=== PATIENT | female | born 1990 | race Caucasian/White ===

== ENCOUNTER → 2025-04-01 15:39 | Outpatient (BNVA) | payer OTHER, SELFPAY | PROVIDERS: Visit Provider Nurse Practitioner Women's Health | DX: N64.52 Nipple discharge (principal) | CPT/HCPCS: 87070; 87075; 87205 ==

== ENCOUNTER 2025-04-16 08:22 | Outpatient (CLI) | payer OTHER, SELFPAY ==
--- NOTE | 2025-04-16 08:30 | MM_ITS ---
WS: [id number] BILATERAL 3D TOMOSYNTHESIS DIGITAL DIAGNOSTIC MAMMOGRAPHY WITH CAD CLINICAL INFORMATION: N64.52 - Nipple discharge HISTORY: LEFT breast lump TECHNIQUE: Bilateral CC, MLO, and ML views. FINDINGS: The breasts are composed of heterogeneous fibroglandular density, which can limit the detection of small underlying mass lesions. Incidental punctate calcifications. LEFT breast ultrasound described below in the area of palpable concern ULTRASOUND BREAST LEFT. TECHNIQUE: Ultrasound left breast focused area of concern. CLINICAL INFORMATION: N64.52 - Nipple discharge FINDINGS: Ultrasound LEFT breast area of concern at the 11 o'clock position 2 cm from the nipple. Hypoechoic lobulated ovoid lesion measuring 8 x 7 x 5 mm. This has a solid appearance. This is technically indeterminate and recommend ultrasound- guided biopsy for definitive evaluation. MM/MM diag BI tomosynthesis [id number] IMPRESSION: DENSITY: The breasts are heterogeneously dense, which may obscure small masses. BI-RADS: 4 - Suspicious Finding - Biopsy Should Be Considered FOLLOW UP: US Guided Biopsy Recommended Recommend ultrasound-guided biopsy of the LEFT breast nodule
--- NOTE | 2025-04-16 09:00 | US_ITS ---
WS: [id number] BILATERAL 3D TOMOSYNTHESIS DIGITAL DIAGNOSTIC MAMMOGRAPHY WITH CAD CLINICAL INFORMATION: N64.52 - Nipple discharge HISTORY: LEFT breast lump TECHNIQUE: Bilateral CC, MLO, and ML views. FINDINGS: The breasts are composed of heterogeneous fibroglandular density, which can limit the detection of small underlying mass lesions. Incidental punctate calcifications. LEFT breast ultrasound described below in the area of palpable concern ULTRASOUND BREAST LEFT. TECHNIQUE: Ultrasound left breast focused area of concern. CLINICAL INFORMATION: N64.52 - Nipple discharge FINDINGS: Ultrasound LEFT breast area of concern at the 11 o'clock position 2 cm from the nipple. Hypoechoic lobulated ovoid lesion measuring 8 x 7 x 5 mm. This has a solid appearance. This is technically indeterminate and recommend ultrasound- guided biopsy for definitive evaluation. US/US breast LT limited* [id number] IMPRESSION: DENSITY: The breasts are heterogeneously dense, which may obscure small masses. BI-RADS: 4 - Suspicious Finding - Biopsy Should Be Considered FOLLOW UP: US Guided Biopsy Recommended Recommend ultrasound-guided biopsy of the LEFT breast nodule
== END 2025-04-16 08:23 | disposition home or self-care (01) ==
LOC: RAD 08:23
PROVIDERS: Visit Provider Nurse Practitioner Women's Health
DX: N64.52 Nipple discharge (principal); R92.333 Mammographic heterogeneous density, bilateral breasts; R92.1 Mammographic calcification found on diagnostic imaging of breast; N63.22 Unspecified lump in the left breast, upper inner quadrant
CPT/HCPCS: 76642; 77062; G0279

== ENCOUNTER 2025-04-29 12:52 | Outpatient (CLI) | payer OTHER, SELFPAY ==
--- NOTE | 2025-04-29 13:15 | US_ITS ---
WS: [id number] ULTRASOUND-GUIDED LEFT BREAST BIOPSY HISTORY: LEFT breast mass. COMPARISON: 04/16/2025 Procedure, risks and complications are explained to the patient. Medications are reviewed. Consent is obtained. The mass in the LEFT breast is localized with ultrasound. Mass localizes to 11:00, 2 cm from the nipple. Skin is cleansed with ChloraPrep and anesthetized with 1% buffered lidocaine. Small dermatome is made. Under sterile conditions mass is biopsied with a 14-gauge Achieve needle. Multiple core biopsies are performed. Material placed in formalin and sent to pathology for review. No complications encountered. Breast tissue marker (Atlas Local ultrasound enhanced ribbon): Single. Biopsy marker is deployed and is probably not within the mass but just beside the mass. Patient left the radiology suite with no complications. Patient is instructed to return to [facility] or call with any concerns. US/[place] [id number] IMPRESSION: 1. Limited core needle biopsy LEFT breast. Only a few biopsies were obtained a s the patient had a vasovagal reaction. PATHOLOGY: Fibroepithelial lesion. No microcalcifications. No malignancy. RECOMMENDATION: 6-month LEFT breast follow-up.
== END 2025-04-29 12:53 | disposition home or self-care (01) ==
LOC: RAD 12:54
PROVIDERS: Visit Provider Nurse Practitioner Women's Health
DX: R92.8 Other abnormal and inconclusive findings on diagnostic imaging of breast (principal); N64.89 Other specified disorders of breast; N60.82 Other benign mammary dysplasias of left breast
CPT/HCPCS: 19083; 88305

== ENCOUNTER → 2025-06-19 10:07 | Outpatient (BNVA) | payer OTHER, SELFPAY | PROVIDERS: Visit Provider Nurse Practitioner Women's Health | DX: R30.0 Dysuria (principal) | CPT/HCPCS: 81025 ==

== ENCOUNTER 2025-06-20 16:07 | Emergency (ER) | payer OTHER, SELFPAY ==
--- OUTSIDE RECORDS SUMMARY | 2025-06-16 16:00 | XMS_ITS | Encounter Summary ---
Author Organization [facility] Address [address] [place] [address] Care Team Providers Care Brass And Wind Instrument Repairer Name Role Phone George Parisi MD Primary Care Provider +1- [phone] Reason for Visit * Reason Comments Establish Care Constipation Encounter Details Date Type Department Care Team (Late st Contact Info) Description 06/16/2025 4:00 PM CDT Office Visit [address] [phone] George Parisi MD [address] [place] [phone] Chronic constipation (Primary Dx); Less than 8 weeks gestation of Social History Tobacco Use Types Packs/Day Years Used Date Smoking Tobacco: Never Smokeless Tobacco: Never Tobacco Cessation:Counseling Given: Not Answered Alcohol Use Standard Drinks/Week Comments Not Currently 0 (1 standard drink = 0.6 oz pur e alcohol) Comments Yes Sex and Gender Information Value Date Recorded Sex Assigned at Not on file Legal Sex Female 8:36 AM CDT Gender Identity Not on file Sexual Orientation Not on file documented as of this encounter Last Filed Vital Signs Vital Sign Reading Time Taken Comments Blood Pressure 116/64 06/16/2025 4:04 PM CDT Pulse 101 06/16/2025 4:04 PM CDT Temperature 37.2 C (99 F) 06/16/2025 4:04 PM CDT Respiratory Rate 18 06/16/2025 4:04 PM CDT Oxygen Saturation 97% 06/16/2025 4:04 PM CDT Inhaled Oxygen Concentration - - Weight 53.5 kg (118 lb) 06/16/2025 4:04 PM CDT Height 160 cm (5' 3 ) 06/16/2025 4:04 PM CDT Body Mass Index 20.9 06/16/2025 4:04 PM CDT documented in this encounter Patient Instructions * Attachments The following attachments cannot be sent through Care Everywhere. * Constipation (Kosovan) documented in this encounter Progress Notes * George Parisi MD - 06/16/2025 4:07 PM CDT HISTORY OF PRESENT ILLNESS Damaris Kang, a 34 y.o. female presents with a Chief Complaint of Establish Care and Constipation Subjective Here today to establish care Chronic constipation Taking bisocodyl 20 mg daily Unsure what her BM would look like without medication Anorexia at age 18, h/o laxative abuse Goes daily now with them, twice weekly without Currently about 6 weeks Due likely middle of January 1 & 3 year old [facility] appointment coming up Patient Active Problem List Diagnosis Code Chronic constipation K59.09 History of anorexia nervosa Z86.59 REVIEW OF SYSTEMS Review of Systems Constitutional: Negative for chills and fever. HENT: Negative for sore throat. Respiratory: Negative for cough and shortness of breath. All other systems reviewed and are negative. Objective PHYSICAL EXAM BP 116/64 Pulse (!) 101 Temp 99 ??F (37.2 ??C) (Temporal) Resp 18 Ht 5' 3 (1.6 m) Wt 53.5 kg (118 lb) LMP 05/04/2025 (Exact Date) SpO2 97% BMI 20.90 kg/m?? Physical Exam Vitals reviewed. Constitutional: General: She is not in acute distress. Appearance: Normal appearance. HENT: Head: Normocephalic and atraumatic. Nose: Nose normal. Eyes: Extraocular Movements: Extraocular movements intact. Conjunctiva/sclera: Conjunctivae normal. Cardiovascular: Rate and Rhythm: Normal rate and regular rhythm. Heart sounds: Normal heart sounds. Pulmonary: Effort: Pulmonary effort is normal. No respiratory distress. Breath sounds: Normal breath sounds. No wheezing or rales. Abdominal: General: Bowel sounds are normal. There is no distension. Palpations: Abdomen is soft. Tenderness: There is no abdominal tenderness. Skin: General: Skin is warm and dry. Neurological: General: No focal deficit present. Mental Status: She is alert and oriented to person, place, and time. Psychiatric: Mood and Affect: Mood normal. Behavior: Behavior normal. Behavior is cooperative. No results found for any visits on 06/16/25 (from the past 24 hours). Assessment ASSESSMENT and PLAN: ICD-10-CM ICD-9-CM 1. Chronic constipation K59.09 564.00 Discussed Handout provided She will also discuss best options with her OB Trial of adding to her nutrition and tapering off dulcolax as able 2. Less than 8 weeks gestation of Z3A.01 V22.2 HCG QUALITATIVE, BLOOD HCG QUALITATIVE, BLOOD George Parisi MD Outpatient Medications Marked as Taking for the 06/16/25 encounter (Office Visit) with Avril Parisi MD Medication Sig Dispense Refill escitalopram oxalate (LEXAPRO) 20 mg tablet Take 20 mg by mouth daily in the morning. Magnesium 200 mg Tablet Take 200 mg by mouth. ferrous sulfate 325 mg (65 mg iron) tablet Take 65 mg by mouth daily with breakfast. Depression Screen Positive: PHQ-2 score >= 3 or PHQ-9 score >= 9 PHQ-2 Total: 0 (06/16/2025 4:04 PM) DEPRESSION PLAN OF CARE Her depression screen was negative. (PHQ2 <3, PHQ9 <10, [place] <11) documented in this encounter Miscellaneous Notes * Addendum Note - George Parisi MD - 06/18/2025 11:02 AM CDTAddended by: GEORGE PARISI on: 06/18/2025 11:02 AM Modules accepted: Orders documented in this encounter Plan of Treatment Upcoming Encounters Date Type Department Care Team (Late st Contact Info) Description 06/17/2026 2:40 PM CDT Office Visit [facility] [address] [phone] George Parisi MD [address] [phone] documented as of this encounter Procedures Procedure Name Priority Date/Time Associated Diagnosis Comments HCG QUALITATIVE, SERUM Routine 06/16/2025 4:30 PM CDT Less than 8 weeks gestation of HCG QUANTITATIVE, BLOOD [facility] Add-on (Auto-Fax) 06/16/2025 12:00 AM CDT Less than 8 weeks gestation of documented in this encounter Results * (ABNORMAL) HCG QUALITATIVE, BLOOD (06/16/2025 4:30 PM CDT) Pathologist [facility] HCG QUAL, BLOOD POSITIVE(A ) See Note: [facility] Comment: Reference Range: Reference Range Non-: Negative : Positive Test Performed at: [facility] [address] [place] [address] Azalea Mendosa MD Blood 06/16/2025 4:30 PM CDT 06/17/2025 3:55 AM CDT us George Parisi MD CHEMISTRY ORDERABLES Final Result [facility] [phone] [facility] [address] [place] [phone] * HCG QUANTITATIVE, BLOOD (06/16/2025 12:00 AM CDT) Pathologist [facility] HCG QUANT, BLOOD 96972 mIU/mL [facility] Comment: Results verified by repeat analysis on dilution. Gestational Age Expected hCG values (mIU/mL) <1 Week: 5-50 1-2 Weeks: 50-500 2-3 Weeks: 100-5000 3-4 Weeks: 500-54562 4-5 Weeks: 1000-25846 5-6 Weeks: [address] 6-8 Weeks: [address] 2-3 Months: [id number] The table above provides only a very rough estimate of gestational age and should be used only in conjunction with other methods for establishing gestational age. Much more reliable and accurate estimations of gestational age may be obtained by using LMP or ultrasound. Values from different assay methods may vary. The use of this assay to monitor or to diagnose patients with cancer or any condition unrelated to has not been cleared or approved by the FDA or the skilled trades teacher of the assay. Test Performed at: [facility] [address] [place] [address] Azalea Mendosa MD Blood 06/16/2025 06/18/2025 2:0 8 PM CDT us George Parisi MD CHEMISTRY ORDERABLES Final Result [facility] [phone] [facility] [address] [place] [address] documented in this encounter Visit Diagnoses Diagnosis Chronic constipation- Primary Unspecified constipation Less than 8 weeks gestation of state, incidental documented in this encounter Care Teams Brass And Wind Instrument Repairer Relationship Specialty Start Date End Date George Parisi MD [address] [place] [phone] PCP - General Family Practice 06/16/25 documented as of this encounter
--- OUTSIDE RECORDS SUMMARY | 2025-06-20 16:12 | XMS_ITS | Clinical Summary ---
Author Organization [facility] [address] [facility] Address [address] [place] [address] Care Team Providers Care Medical Laboratory Assistant Name Role Phone Leonie Parisi MD Primary Care Provider +1- [phone] Allergies No known active allergies Medications escitalopram oxalate (LEXAPRO) 20 mg tablet Take 20 mg by mouth daily in the morning. 10/29/2024 Active Magnesium 200 mg Tablet Take 200 mg by mouth. 07/19/2023 Active ferrous sulfate 325 mg (65 mg iron) tablet Take 65 mg by mouth daily with breakfast. Active pyridoxine (VITAMIN B6) 250 mg Tablet Take 250 mg by mouth daily. Active Active Problems Problem Noted Date Diagnosed Date Chronic constipation 06/16/2025 History of anorexia nervosa 06/16/2025 Comments Yes Encounters Date Type Department Care Team Description 06/18/2025 Results Follow-Up [address] [phone] Leonie Parisi MD HCG QUALITATIVE, BLOOD, HCG QUANTITATIVE, BLOOD 06/16/2025 4:00 PM CDT Office Visit [address] [phone] Leonie Parisi MD Chronic constipation (Primary Dx); Less than 8 weeks gestation of 06/10/2025 External Device Data STL ABSTRACTION Provider, Abstract 06/09/2025 External Device Data ST[facility] ABSTRACTION Provider, Abstract 05/26/2025 External Device Data [facility] ABSTRACTION Provider, Abstract 05/19/2025 External Device Data ST[facility] ABSTRACTION Provider, Abstract 05/19/2025 External Device Data ST[facility] ABSTRACTION Provider, Abstract 05/19/2025 External Device Data STL ABSTRACTION Provider, Abstract 05/14/2025 Telephone [facility] [address] [phone] Leonie Parisi MD Appointment Correction from Last 3 Months Family History Relation Name Status Comments Father Alive Mother Alive Social History Tobacco Use Types Packs/Day Years [...] on file Sexual Orientation Not on file Last Filed Vital Signs Vital Sign Reading [...] Mass Index 20.9 06/16/2025 4:04 PM CDT Plan of Treatment Upcoming Encounters Date Type Department Care Team (Late st Contact Info) Description 06/17/2026 2:40 PM CDT Office Visit [facility] [address] [phone] Leonie Parisi MD [address] [phone] Health Maintenance Due Date Last Done Comments HPV VACCINES (1 - 3-dose series) 2007 HEPATITIS B VACCINES (1 of 3 - 19+ 3-dose series) 2011 HPV/Cotest (21-29) 2013 CERVICAL CANCER SCREENING 2022 HPV/Cotest (30-65) 2022 PAP SMEAR 2022 COVID-19 Vaccine (3 - 2023-2 5 season) 2024 08/18/2021, 07/28/2021 INFLUENZA VACCINE (#1) 2025 , 09/14/2022, 10/30/2020, Additional history exists DTAP/TDAP/TD VACCINES (3 - T d or Tdap) 05/22/2033 05/22/2023, 06/14/2015 RSV VACCINE (60+ or ) (1 - 1-dose 75+ series) 2067 Procedures Procedure Name Priority Date/Time Associated Diagnosis Comments HCG QUALITATIVE, SERUM Routine 06/16/2025 4:30 PM CDT Less than 8 weeks gestation of HCG QUANTITATIVE, BLOOD [facility] Add-on (Auto-Fax) 06/16/2025 12:00 AM CDT Less than 8 weeks gestation of from Last 3 Months Results * (ABNORMAL) HCG QUALITATIVE, BLOOD (06/16/2025 4:30 PM CDT) HCG QUAL, BLOOD POSITIVE(A ) See Note: [facility] Comment: Reference Range: Reference Range Non-: Negative : Positive Test Performed at: [facility] [address] [place] [address] Azalea Mendosa MD Blood 06/16/2025 4:30 PM CDT 06/17/2025 3:55 AM CDT us Leonie Parisi MD CHEMISTRY ORDERABLES Final Result [facility] [phone] [facility] [address] [place] [phone] * HCG QUANTITATIVE, BLOOD (06/16/2025 12:00 AM CDT) HCG QUANT, BLOOD 46956 mIU/mL Que [facility] Comment: Results verified by repeat analysis on dilution. Gestational Age Expected hCG values (mIU/mL) <1 Week: 5-50 1-2 Weeks: 50-500 2-3 Weeks: 100-5000 3-4 Weeks: 500-33868 4-5 Weeks: 1000-47335 5-6 Weeks: [address] 6-8 Weeks: [address] 2-3 Months: [id number] The table above provides only a very [...] or approved by the FDA or the political aide of the assay. Test Performed at: [facility] [address] [place] [address] Azalea Mendosa MD Blood 06/16/2025 06/18/2025 2:0 8 PM CDT us Leonie Parisi MD CHEMISTRY ORDERABLES Final Result [facility] [phone] [facility] [phone] from Last 3 Months Insurance [facility] Care Teams Medical Laboratory Assistant Relationship Specialty Start Date End Date Leonie Parisi MD [address] [phone] PCP - General Family Practice 06/16/25
--- OUTSIDE RECORDS SUMMARY | 2025-06-20 16:12 | XMS_ITS | Encounter Summary ---
Author Organization [facility] Address [address] [address] Phone Care Team Providers Care Mobile Architect Name Role Phone Glenda Sawant [facility] Primary Care Provider Reason for Visit * Reason Onset Date Comments Headache 08/08/2023 Encounter Details Date Type Department Care Team (Late st Contact Info) Description 08/08/2023 Telephone [facility] [address] [place] [address] Lyn Fisher MD [address] [place], [place] [phone] Headache Social History Tobacco Use Types Packs/Day Years Used Date Smoking Tobacco: Never Smokeless Tobacco: Never Alcohol Use Standard Drinks/Week Comments Never 0 (1 standard drink = 0.6 oz pur e alcohol) Humiliation, Afraid, Rape, and Kick questionnair e Answer Date Recorded Within the last year, have y ou been afraid of your partner or ex-partner? No 08/01/2023 Within the last year, have y ou been humiliated or emotionally abused in other ways by your partner or ex-partner? No Within the last year, have y ou been kicked, hit, slapped, or otherwise physically hurt by your partner or ex-partner? No 08/01/2023 Within the last year, have y ou been raped or forced to have any kind of sexual activity by your partner or ex-partner? No 08/01/2023 PHQ-2 Answer Date Recorded Patient Health Questionnaire-2 Score 0 01/22/2023 [place] Depression Scale Answer Date Recorded [place] Depression Scale Total 0 08/02/2023 The thought of harming myself has occurred to me . Never 08/02/2023 Comments No Sex and Gender Information Value Date Recorded Sex Assigned at Not on file Legal Sex Female 9:52 AM CDT Gender Identity Not on file Sexual Orientation Not on file Occupation Industry Job Start Date Job End Date Unemployed Not on file Not on file Not on file Travel History Travel Start Travel End [place] 06/06/2025 06/09/2025 documented as of this encounter Miscellaneous Notes * Telephone Encounter - Rebecca Castillo RN - 08/09/2023 3:27 PM CDT Contacted pt with provider instructions. Pt reports symptoms are better. Pt verbalized understanding and will contact the office if blood pressure or symptoms do not resolve. Pt voiced no further questions or concerns. * Telephone Encounter - Lyn Fisher MD - 08/08/2023 12:09 PM CDT You could see if anesthesia could assess her today before/after the nurse appointment forpossible spinal headache. Likely it is not a spinal headache given the timing. Usually that is distinctive in that headache resolves completely with lying down and immediately gets worse as she sits or stands up. She can try the magnesium/riboflavin and also ibuprofen or excedrin now that she is nolonger . I agree it is important to get blood pressure checked. If the above measures do not work, we should get her in for an appointment * Telephone Encounter - Lesia Tripp MA - 08/08/2023 9:23 AM CDT Returned patient call to discuss concerns. She states that she struggled with frequent headaches the last few weeks of , which had resolved up until two days ago. She states that she has been taking tylenol to manage discomfort, but it is not providing much relief in her headaches. She reports that she is getting adequate sleep. She and her are taking shifts since baby is bottle feeding expressed breast milk. She reports adequate food/water intake. She denies N/V, RUQ pain, visual disturbances and edema. She is concerned that she might have spinal headache from her Epidural. She has not continued Magnesium/Riboflavin supplements since delivery. She states that she will resta rt those. She has an appointment with the Nurse today and she is going to request that they check her blood pressure there. This MA let patient know that I would send her concerns over to Dr. Fisher for review. This MA reviewed return precautions with patient who verbalized understanding. She voiced no further concerns and expressed thanks for the quick call back. Call was then ended. Please advise? * Telephone Encounter - Austyn Johnson - 08/08/2023 8:48 AM CDT Mom been having headaches since giving . Please advise documented in this encounter Plan of Treatment Not on file documented as of this encounter Visit Diagnoses Not on filedocumented in this encounter Additional Health Concerns Infection Onset Date Last Indicated Resolved Time COVID-19 Rule-Out 10/26/2023 10/26/2023 10/26/2023 11:45 AM BARREL FILLER Influenza 12/28/2024 12/28/2024 01/07/2025 4:23 AM BARREL FILLER documented as of this encounter Care Teams Mobile Architect Relationship Specialty Start Date End Date Glenda Sawant, SPECTRAL SCIENTIST- [address] [place] [address] PCP - General Family Medicine 06/07/22 documented as of this encounter
--- OUTSIDE RECORDS SUMMARY | 2025-06-20 16:12 | XMS_ITS | Encounter Summary ---
Author Organization [facility] Address [address] [address] Phone Care Team Providers Care Molding Machine Operator Helper Name Role Phone Glenda Sawant [facility] Primary Care Provider Reason for Visit * Reason Onset Date Comments incoming call 07/27/2023 Encounter Details Date Type Department Care Team (Late st Contact Info) Description 07/27/2023 Telephone [facility] [address] [place] [address] Lyn Fisher MD [address] [place] [address] incoming call Social History Tobacco Use Types Packs/Day Years Used Date Smoking Tobacco: Never Smokeless Tobacco: Never Alcohol Use Standard Drinks/Week Comments Never 0 (1 standard drink = 0.6 oz pur e alcohol) PHQ-2 Answer Date Recorded Patient Health Questionnaire-2 Score 0 01/22/2023 Mobile Depression Scale Answer Date Recorded Mobile Depression Scale Total 1 05/22/2023 The thought of harming myself has occurred to me . Never 05/22/2023 Comments Yes Sex and Gender Information Value Date Recorded Sex Assigned at Not on file Legal Sex Female 9:52 AM CDT Gender Identity Not on file Sexual Orientation Not on file Occupation Industry Job Start Date Job End Date Unemployed Not on file Not on file Not on file Travel History Travel Start Travel End [place] 06/06/2025 06/09/2025 documented as of this encounter Miscellaneous Notes * Telephone Encounter - Yessy Flor - 07/27/2023 2:31 PM CDT Pt had an appointment today and cant remember what Dr. strickland told her to take along with Benadryl. Please advise. documented in this encounter Plan of Treatment Not on file documented as of this encounter Visit Diagnoses Not on filedocumented in this encounter Additional Health Concerns Infection Onset Date Last Indicated Resolved Time COVID-19 Rule-Out 10/26/2023 10/26/2023 10/26/2023 11:45 AM SAMPLE EXAMINER Influenza 12/28/2024 12/28/2024 01/07/2025 4:23 AM SAMPLE EXAMINER documented as of this encounter Care Teams Molding Machine Operator Helper Relationship Specialty Start Date End Date Glenda Sawant, INCIDENT ANALYST-BC [address] [place] [address] PCP - General Family Medicine 06/07/22 documented as of this encounter
--- OUTSIDE RECORDS SUMMARY | 2025-06-20 16:12 | XMS_ITS | Encounter Summary ---
Author Organization [facility] Address [address] [place] [address] Care Team Providers Care Tax Intern Name Role Phone Leonie Parisi MD Primary Care Provider [phone]- [phone] Encounter Details Date Type Department Care Team (Late st Contact Info) Description 06/18/2025 Results Follow-Up [facility] Medicine [address] [address] Leonie Parisi MD [address] [address] HCG QUALITATIVE, BLOOD, HCG QUANTITATIVE, BLOOD Social History Tobacco Use Types Packs/Day Years Used Date Smoking Tobacco: Never Smokeless Tobacco: Never Alcohol Use Standard Drinks/Week Comments Not Currently 0 (1 standard drink = 0.6 oz pur e alcohol) Comments Yes Sex and Gender Information Value Date Recorded Sex Assigned at Not on file Legal Sex Female 8:36 AM CDT Gender Identity Not on file Sexual Orientation Not on file documented as of this encounter Miscellaneous Notes * Result Encounter Note - Leonie Parisi MD - 06/19/2025 10:34 AM CDT Result received in InB[employer] * Result Encounter Note - Leonie Parisi MD - 06/18/2025 11:03 AM CDT Result received in [employer] documented in this encounter Plan of Treatment Upcoming Encounters Date Type Department Care Team (Late st Contact Info) Description 06/17/2026 2:40 PM CDT Office Visit [facility] [address] [address] Leonie Parisi MD [address] [address] documented as of this encounter Visit Diagnoses Not on filedocumented in this encounter Care Teams Tax Intern Relationship Specialty Start Date End Date Leonie Parisi MD [address] [address] PCP - General Family Practice 06/16/25 documented as of this encounter
--- OUTSIDE RECORDS SUMMARY | 2025-06-20 16:12 | XMS_ITS | Encounter Summary ---
Author Organization [facility] Address [address] [address] Phone Care Team Providers Care Biomass Technician Name Role Phone Glenda Sawant [facility] Primary Care Provider Encounter Details Date Type Department Care Team (Late st Contact Info) Description 01/22/2023 Telephone [facility]NT CL[facility]IC [facility] [address] [place], [place] [phone] Jayesh Hess MD [address] [place], [place] [address] Social History Tobacco Use Types Packs/Day Years Used Date Smoking Tobacco: Never Smokeless Tobacco: Never Alcohol Use Standard Drinks/Week Comments Never 0 (1 standard drink = 0.6 oz pur e alcohol) PHQ-2 Answer Date Recorded Patient Health Questionnaire-2 Score 0 01/22/2023 [place] Depression Scale Answer Date Recorded [place] Depression Scale Total 2 01/03/2023 The thought of harming myself has occurred to me . Never 01/03/2023 Comments Yes Sex and Gender Information Value Date Recorded Sex Assigned at Not on file Legal Sex Female 9:52 AM CDT Gender Identity Not on file Sexual Orientation Not on file Occupation Industry Job Start Date Job End Date Unemployed Not on file Not on file Not on file Travel History Travel Start Travel End [place] 06/06/2025 06/09/2025 COVID-19 Exposure Response Date Recorded In the last 10 days, have yo u been in contact with someone who was confirmed or suspected to have Coronavirus/COVID-19? No / Unsure 01/22/2023 10:18 AM DECATING MACHINE OPERATOR documented as of this encounter Functional Status * Over the past 2 weeks, how often have you been bothered by any of the following problems? Question Answer Date of Assessment Author Little interest or pleasure in doing things Not at all 01/22/2023 4:02 PM DECATING MACHINE OPERATOR Sanjuanita Winslow L PN-IV Feeling down, depressed, or hopeless Not at all 01/22/2023 4:02 PM DECATING MACHINE OPERATOR Sanjuanita Winslow L PN-IV Patient Health Questionnaire-2 Score 0 01/22/2023 4:02 PM DECATING MACHINE OPERATOR Sanjuanita Winslow REGISTERED VETERINARY TECHNICIAN-IV documented as of this encounter Plan of Treatment Not on file documented as of this encounter Visit Diagnoses Not on filedocumented in this encounter Additional Health Concerns Infection Onset Date Last Indicated Resolved Time COVID-19 Rule-Out 10/26/2023 10/26/2023 10/26/2023 11:45 AM DECATING MACHINE OPERATOR Influenza 12/28/2024 12/28/2024 01/07/2025 4:23 AM DECATING MACHINE OPERATOR documented as of this encounter Care Teams Biomass Technician Relationship Specialty Start Date End Date Glenda Sawant, CHILLER TENDER-BC [address] [place] [phone] PCP - General Family Medicine 06/07/22 documented as of this encounter
--- OUTSIDE RECORDS SUMMARY | 2025-06-20 16:12 | XMS_ITS | Encounter Summary ---
Author Organization [facility] Address [address] [address] Phone Care Team Providers Care Small Engine Mechanic Name Role Phone Glenda Sawant [facility] Primary Care Provider Reason for Visit * Reason Onset Date Comments Appointment 07/04/2023 Encounter Details Date Type Department Care Team (Late st Contact Info) Description 07/04/2023 Telephone ENT CL[facility]IC [facility] [address] [place], [place] [phone] Jayesh Hess MD [address] [phone] Appointment Social History Tobacco Use Types Packs/Day Years Used Date Smoking Tobacco: Never Smokeless Tobacco: Never Alcohol Use Standard Drinks/Week Comments Never 0 (1 standard drink = 0.6 oz pur e alcohol) PHQ-2 Answer Date Recorded Patient Health Questionnaire-2 Score 0 01/22/2023 [place] Depression Scale Answer Date Recorded [place] Depression Scale Total 1 05/22/2023 The thought [...] file Travel History Travel Start Travel End [place] 06/06/2025 06/09/2025 COVID-19 Exposure Response Date Recorded In the last 10 days, have yo u been in contact with someone who was confirmed or suspected to have Coronavirus/COVID-19? No / Unsure 06/25/2023 3:02 PM CDT documented as of this encounter Miscellaneous Notes * Telephone Encounter - Karmen Mendez - 07/04/2023 2:02 PM CDT Scheduled. * Telephone Encounter - Rachel Boss - 07/04/2023 10:26 AM CDT Needs appointment for f/u documented in this encounter Plan of Treatment Not on file documented as of this encounter Visit Diagnoses Not on filedocumented in this encounter Additional Health Concerns Infection Onset Date Last Indicated Resolved Time COVID-19 Rule-Out 10/26/2023 10/26/2023 10/26/2023 11:45 AM CITY SUPERVISOR Influenza 12/28/2024 12/28/2024 01/07/2025 4:23 AM CITY SUPERVISOR documented as of this encounter Care Teams Small Engine Mechanic Relationship Specialty Start Date End Date Glenda Sawant, COMMERCIAL ATTACHE-BC [address] [place] [phone] PCP - General Family Medicine 06/07/22 documented as of this encounter
--- OUTSIDE RECORDS SUMMARY | 2025-06-20 16:12 | XMS_ITS | Clinical Summary ---
Author Organization [facility] Address [address] [place] [address] Phone Care Team Providers Care Form Setter Steel Pan Forms Name Role Phone Glenda Sawant [facility] Primary Care Provider Allergies No known active allergies Medications breast pump deviceIndicatio ns:Breast feeding status of mother 1 Device 1 (one) time each day. 1 each 3 Active ferrous sulfate 325 mg (65 mg iron) tablet Take 65 mg by mouth 1 (one) time each day with breakfast. Active magnesium 200 mg tabletIndicatio ns:Headache in , antepartum Take 200 mg by mouth every 12 (twelve) hours if needed (headaches). 60 tablet 3 Active 25/iron fum/folic/dha (-1 ORAL) Take by mouth. Activ e cetirizine (ZyrTEC) 10 mg tabletIndicatio ns:Viral upper respiratory tract infection Take 1 tablet (10 mg total) by mouth 1 (one) time each day. 30 tablet 5 4 Active Additional Information Patient not taking.Reported on 06/11/2025 fluticasone (Flonase) 50 mcg/actuation nasal spray Administer 2 sprays into each nostril 2 (two) times a day. Shake gently. Before first use, prime pump. After use, clean tip and replace cap. 16 g 11 4 025 Active Additional Information Patient not taking.Reported on 06/11/2025 escitalopram (Lexapro) 20 mg tablet TAKE 1 TABLET BY MOUTH DAILY IN THE MORNING 90 tablet 3 12/04/202 4 Active bisacodyL (Dulcolax) 5 mg EC tablet Take 5 mg by mouth 1 (one) time each day if needed for constipation. Do not crush, chew, or split. Active pyridoxine (B-6) 250 mg tablet Take 250 mg by mouth 1 (one) time each day. Active oxymetazoline (Afrin) 0.05 % nasal spray Administer 2 sprays into each nostril 2 (two) times a day for 2 days. Do not use for more than 3 days. 30 mL 5 Active Additional Information Patient not taking.Reported on 06/11/2025 sod kczyd-trgffj-ar ueez bottle (NeQBE Sinus Rinse Complete) packet with rinse device Use per shot hole driller instructions to flush nasal passages daily 1 each 5 Active levoFLOXacin (Levaquin) 500 mg tablet Take 1 tablet (500 mg total) by mouth 1 (one) time each day for 10 days. 10 tablet 5 025 amoxicillin-pot clavulanate (Augmentin) 875-125 mg tablet Take 1 tablet by mouth 2 (two) times a day for 10 days. 20 tablet 5 025 Active Problems Problem Noted Date Diagnosed Date Status post functional endoscopic sinus surgery (FESS) 05/04/2025 Chronic ethmoidal sinusitis 03/06/2025 Hypertrophy of inferior nasal turbinate 03/06/20 25 Deviated nasal septum 03/06/2025 Chronic maxillary sinusitis 01/16/2025 Dysfunction of left eustachian tube 01/16/2025 Temporomandibular joint disorder 01/16/2025 Nasal obstruction 01/16/2025 Vaginal delivery 08/01/2023 Encounter for supervision of normal in third trimester 06/23/2023 Benign gestational thrombocytopenia in third tri mester 06/23/2023 Comments Yes Encounters Date Type Department Care Team Description 06/11/2025 10:45 AM CDT Office Visit [facility] [address] [place] [phone] Jayesh Hess MD Chronic maxillary sinusitis (Primary Dx); Status post functional endoscopic sinus surgery (FESS); Nasal obstruction; Seasonal allergic rhinitis due to pollen 05/21/2025 10:45 AM CDT Office Visit [facility] [address] [place] [address] Jayesh Hess MD Status post nasal septoplasty (Primary Dx); Chronic maxillary sinusitis 05/08/2025 [place] [address] Jayesh Hess MD 05/04/2025 10:00 AM CDT Office Visit [facility] [address] [place] [phone] Lynette Lang NP Status post nasal septoplasty (Primary Dx); Status post functional endoscopic sinus surgery (FESS) 05/01/2025 Telephone E[facility] [address] [address] Jayesh Hess MD Post Op Question 04/28/2025 Results Follow-Up [facility]ATING [facility] [address] [place] [phone] Lynette Lang NP Tissue exam 04/27/2025 9:05 AM CDT - 04/27/2025 10:40 AM CDT Surgery [facility] [address] [place] [address] Jayesh Hess MD Septoplasty and inferior turbinate reduction using radiofrequency ablation [12684 (CPT ) +1 more] 04/27/2025 8:23 AM CDT Anesthesia Event [facility] [address] [place] [phone] Dean Pitt CRNA [place], Michael F, DARIELA 04/27/2025 7:01 AM CDT - 04/27/2025 10:48 AM CDT Hospital Encounter [facility] [address] [place] [address] Jayesh Hess MD Chronic maxillary sinusitis (Primary Dx); Chronic ethmoidal sinusitis; Hypertrophy of inferior nasal turbinate; Deviated nasal septum Discharge Disposition: Discharged to Home or Self Care (Routine Discharge) 04/27/2025 Telephone [facility]NT CL[facility]IC [facility] [address] [place] [address] Jayesh Hess MD Post-op from Last 3 Months Immunizations Immunization Administration Dates Next Due Influenza (IM) Preservative Free 09/14/2023 Influenza, Quadrivalent, PF (IIV4) 10/30/2020, Influenza, Quadrivalent, PF, MDCK 09/14/2022,01/2020 Pfizer Purple Cap SARS-CoV-2 Vaccination 021 Tdap 05/22/2023,06/14/2015 Family History Medical History Relation Comments No Known Problems Brother Hypertension Father Heart palpatations Mother No Known Problems Sister Relation Status Comments Brother Alive Father Alive Mother Alive Sister Alive Social History Tobacco Use Types Packs/Day Years Used Date Smoking Tobacco: Never Passive Smoke Exposure: Never Smokeless Tobacco: Never Tobacco Cessation:Counseling Given: Not Answered Alcohol Use Standard Drinks/Week Comments Never 0 [...] by your partner or ex-partner? No 08/01/2023 AUDIT-C Answer Date Recorded Q1: How often do you have a drink containing alcohol? Never 01/27/2025 Q2: How many drinks containi ng alcohol do you have on a typical day when you are drinking? Patient does not drink Frequency of Binge Drinking Not on file 02/2025 PHQ-2 Answer Date Recorded Patient Health Questionnaire-2 Score 0 05/04/2025 [place] Depression Scale Answer Date Recorded [place] Depression Scale Total 15 09/14/2023 The thought of harming myself has occurred to me . Never 09/14/2023 [facility] - Mental Health Answer Date Recorde d Little interest or pleasure in doing things Not at all 05/04/2025 Feeling down, depressed, or hopeless Not at all 05/04/2025 Feeling of Stress Not on file 05/04/2025 Comments Yes Sex and Gender Information Value Date Recorded Sex Assigned at Not on file Legal Sex Female 9:52 AM CDT Gender Identity Not on file Sexual Orientation Not on file Occupation Industry Job Start Date Job End Date Unemployed Not on file Not on file Not on file Travel History Travel Start Travel End [place] 06/06/2025 06/09/2025 Last Filed Vital Signs Vital Sign Reading Time Taken Comments Blood Pressure 97/62 06/11/2025 10:54 AM CDT Pulse 76 06/11/2025 10:54 AM CDT Temperature 36.6 C (97.9 F) 06/11/2025 10:54 AM CDT Respiratory Rate 16 06/11/2025 10:54 AM CDT Oxygen Saturation 98% 06/11/2025 10:54 AM CDT Inhaled Oxygen Concentration - - Weight 53.1 kg (117 lb) 06/11/2025 10:54 AM CDT Height 160 cm (5' 3 ) 06/11/2025 10:54 AM CDT Body Mass Index 20.73 06/11/2025 10:54 AM CDT Plan of Treatment Health Maintenance Due Date Last Done Comments MMR Vaccines (1 of 1 - Standard series) 1993 Varicella Vaccines (1 of 2 - 13+ 2-dose series) 2005 Social Drivers of Health (SDoH) 2010 Hepatitis B Vaccines (1 of 3 - 19+ 3-dose series) 2011 Pap Smear 2013 Cervical Cancer Screening 2022 HPV/Cotest 2022 DTaP,Tdap,and Td Vaccines (3 - Td or Tdap) 11/21/2023 05/22/2023, 06/14/2015 COVID-19 Vaccine ( - season) 2024 Influenza Vaccine (#1) 2025 , 09/14/2023, 09/14/2022, Additional history exists Depression Screening 05/05/2026 05/04/2025 Pneumococcal Vaccine: 50+ Years (1 of 1 - PCV) 2042 Zoster Vaccines (1 of 2) 2042 RSV Vaccines (1 - 1-dose 75+ series) 2067 Diabetes Screening Discontinued 05/22/2023 HIB Vaccines Aged Out No longer eligi ble based on patient's age to complete this topic HPV Vaccines Aged Out No longer eligi ble based on patient's age to complete this topic Hepatitis A Vaccines Aged Out No long er eligible based on patient's age to complete this topic IPV Vaccines Aged Out No longer eligi ble based on patient's age to complete this topic Meningococcal B Vaccine Aged Out No l onger eligible based on patient's age to complete this topic Meningococcal Vaccine Aged Out No flakita jose eligible based on patient's age to complete this topic Pneumococcal Vaccine Aged Out No long er eligible based on patient's age to complete this topic Rotavirus Vaccines Aged Out No longer eligible based on patient's age to complete this topic Procedures Procedure Name Priority Date/Time Associated Diagnosis Comments TISSUE EXAM Routine 04/27/2025 9:48 AM CDT Chronic maxillary sinusitis Chronic ethmoidal sinusitis Hypertrophy of inferior nasal turbinate Deviated nasal septum ANESTHESIA PERIPHERAL IV PLACEMENT Routine 04/27/2025 8:38 AM CDT ND AN ELECTIVE ENDOTRACHEAL AIRWAY Routine 04/27/2025 8:33 AM CDT ND NASAL/SINUS NDSC W/TOTAL ETHOIDECTOMY 04/27/2025 8:23 AM CDT Chronic maxillary sinusitis Chronic ethmoidal sinusitis Hypertrophy of inferior nasal turbinate Deviated nasal septum ND NSL/SINUS NDSC MAX ANTROST W/RMVL TISS MAX SINUS 04/27/2025 8:23 AM CDT Chronic maxillary sinusitis Chronic ethmoidal sinusitis Hypertrophy of inferior nasal turbinate Deviated nasal septum ND STRTCTC CPTR ASSTD PX EXTRADURAL CRANIAL 04/27/2025 8:23 AM CDT Chronic maxillary sinusitis Chronic ethmoidal sinusitis Hypertrophy of inferior nasal turbinate Deviated nasal septum ND ABLTJ SOF TISS INF TURBS UNI/BI SUPFC INTRAMURAL 04/27/2025 8:23 AM CDT Chronic maxillary sinusitis Chronic ethmoidal sinusitis Hypertrophy of inferior nasal turbinate Deviated nasal septum ND SEPTOPLASTY/SUBMUCOUS RESECJ W/WO CARTILAGE GRF 04/27/2025 8:23 AM CDT Chronic maxillary sinusitis Chronic ethmoidal sinusitis Hypertrophy of inferior nasal turbinate Deviated nasal septum , URINE Routine 04/27/2025 7:10 AM CDT GLUCOSE CHALLENGE Routine 05/22/2023 3:5 4 PM CDT Encounter for supervision of other normal in second trimester from Last 3 Months or Most Recently Relevant to Health Maintenance Results * Tissue exam (04/27/2025 9:48 AM CDT) Case Report Surgical Pathology Case: [id number] Authorizing Provider: Jayesh Hess MD Collected: 04/27/2025 0948 Ordering Location: OPERATING ROOM-MEDICAL Received: 04/27/2025 1016 OFFICE BUILDING Pathologist: Geoff Rodriguez MD Specimens: 1) - Maxillary, left maxillary 2) - Maxillary, right maxillary 04/28/2025 8:16 AM CDT [facility] Final Diagnosis Left maxillary sinus, curettage/resec tion: Respiratory-typ e sinonasal mucosa with focal bone trabeculae, with associated chronic inflammation (chronic sinusitis) Negative for dysplasia, neoplasia or malignancy Right maxillary sinus, curettage/resec tion: Respiratory-typ e sinonasal mucosa with focal bone trabeculae, with associated chronic inflammation (chronic sinusitis) Negative for dysplasia, neoplasia or malignancy 04/28/2025 8:16 AM CDT [facility] at 0816 CDT Clinical Information Pre-op diagnosis: Chronic maxillary sinusitis [J32.0] Chronic ethmoidal sinusitis [J32.2] Hypertrophy of inferior nasal turbinate [J34.3] Deviated nasal septum [J34.2] 04/28/2025 8:16 AM CDT [facility] Gross Description 1, Maxillary - left maxillary The specimen is labeled Damaris Craigfrederic Kang left maxillary. Received is a 2 x 0.5 x 0.2 cm off-white red segment of tissue. The specimen is submitted in cassette 1. 2, Maxillary - right maxillary The specimen is labeled Damaris Kang right maxillary. Received is a red-willis segment of tissue that measures 1.5 x 0.6 x 0.2 cm. The specimen is submitted in cassette 2. 04/28/2025 8:16 AM CDT [facility] Tissue Entire maxillary torus / Unknown 04/27/2025 9:48 AM CDT 04/27/2025 10:16 AM CDT Comment:Pre-op diagnosis: Chronic maxillary sinusitis [J32.0] Chronic ethmoidal sinusitis [J32.2] Hypertrophy of inferior nasal turbinate [J34.3] Deviated nasal septum [J34.2] Tissue specimen (specimen) Entire maxillary torus / Unknown 04/27/2025 9:48 AM CDT 04/27/2025 10:16 AM CDT Comment:Pre-op diagnosis: Chronic maxillary sinusitis [J32.0] Chronic ethmoidal sinusitis [J32.2] Hypertrophy of inferior nasal turbinate [J34.3] Deviated nasal septum [J34.2] Jayesh Hess MD LAB PATHOLOGY ORDERABLES Final Result Performing Organization Address City/State/[facility] Co de Phone Number [facility] [address] [address] * Peripheral IV (04/27/2025 8:38 AM CDT) Narrative Dean Pitt CRNA - 04/27/2025 8:38 AM CDT Dean Pitt CRNA 04/27/2025 9:01 AM Peripheral IV Date/Time: 04/27/2025 8:38 AM Placement Needle size: 20 G Laterality: right Location: hand Local anesthetic: none Site prep: chlorhexidine Technique: anatomical landmarks Attempts: 1 Jayesh Hess MD ANESTHESIA ORDERABLES Fin al Result * ND AN ELECTIVE ENDOTRACHEAL AIRWAY (04/27/2025 8:33 AM CDT) Narrative Dean Pitt CRNA - 04/27/2025 8:33 AM CDT Dean Pitt CRNA 04/27/2025 8:44 AM Airway Date/Time: 04/27/2025 8:33 AM Reason: elective Airway not difficult General Information and Staff Patient location during procedure: OR Performed by: Dean Pitt CRNA Authorized by: Jayesh Hess MD Patient Condition Indications for airway management: anesthesia Patient position: sniffing Sedation level: deep Mask Ventilation Mask difficulty assessment: 1 - vent by mask Final Airway Details Preoxygenated: yes Final airway type: endotracheal airway Successful airway: ETT Cuffed: yes Successful intubation technique: direct laryngoscopy Adjuncts used in placement: intubating stylet Endotracheal tube insertion site: oral Blade: Seema Blade size: #3 ETT size (mm): 6.5 Cormack-Lehane Classification: grade I - full view of glottis Placement verified by: chest auscultation and capnometry Cuff volume (mL): 8 Measured from: lips ETT to lips (cm): 22 Ventilation between attempts: none Number of attempts at approach: 1 Jayesh Hess MD ANESTHESIA ORDERABLES Fin al Result * , urine (04/27/2025 7:10 AM CDT) URINE PREG TEST Negative Negative 04/27/2025 7:47 AM CDT [facility] Urine Urine specimen obtained by clean catch procedure / Unknown Non-blood Collection / Unknown 04/27/2025 7:10 AM CDT 04/27/2025 7:15 AM CDT Kalpesh Reyna DO LAB URINE ORDERABLES Final Resul t [facility] [address] [address] * Glucose Challenge (05/22/2023 3:54 PM CDT) Glucose Challenge 106 70 - 130 mg/dL LAB CHEMISTRY METHOD 05/22/2023 5:59 PM CDT [facility] Blood Venous blood specimen / Unknown Venipuncture / Unknown 05/22/2023 3:54 PM CDT 05/22/2023 3:54 PM CDT us Lyn Fisher MD LAB BLOOD ORDERABLES Final Result [facility] [address] [place] [address] from Last 3 Months or Most Recently Relevant to Health Maintenance Insurance [facility] Advance Directives For more information, please contact: [phone] (7:30 AM - 5PM [facility], 7 days a week) * Full Code (Latest Code Status on File) Date Activated Date Inactivated Comments 04/27/2025 7:18 AM 04/27/2025 12:54 PM * Full Code Date Activated Date Inactivated Comments 08/01/2023 12:54 AM 08/02/2023 5:53 PM Care Teams Form Setter Steel Pan Forms Relationship Specialty Start Date End Date Glenda Sawant, PRODUCTION LINE WORKER-BC [address] [place] [address] [place] [address] PCP - General Family Medicine 06/07/22
--- OUTSIDE RECORDS SUMMARY | 2025-06-20 16:12 | XMS_ITS | Encounter Summary ---
Author Organization [facility] Address [address] [place] [id number] Phone Care Team Providers Care Softball Core Molder Name Role Phone Glenda Sawant [facility] Primary Care Provider Reason for Visit * Reason Onset Date Comments Physical Therapy Initial Expamination 07/19/2023 Encounter Details Date Type Department Care Team (Late st Contact Info) Description 07/19/2023 Telephone [facility] [address] [place] [id number] Lyn Fisher MD [address] [place] [address] Physical Therapy Initial Expamination Social History Tobacco Use Types Packs/Day Years Used Date Smoking Tobacco: Never Smokeless Tobacco: Never Alcohol Use Standard Drinks/Week Comments Never 0 (1 standard drink = 0.6 oz pur e alcohol) PHQ-2 Answer Date Recorded Patient Health Questionnaire-2 Score 0 01/22/2023 [place] Depression Scale Answer Date Recorded [place] Depression Scale Total 1 05/22/2023 The thought [...] file Travel History Travel Start Travel End [place] 06/06/2025 06/09/2025 COVID-19 Exposure Response Date Recorded In the last 10 days, have sara u been in contact with someone who was confirmed or suspected to have Coronavirus/COVID-19? No / Unsure 06/25/2023 3:02 PM CDT documented as of this encounter Miscellaneous Notes * Telephone Encounter - Lyn Fisher MD - 07/19/2023 12:04 PM CDT Reviewed * Telephone Encounter - Dora Vazquez - 07/19/2023 9:48 AM CDT Physical Therapy Initial Expamination documented in this encounter Plan of Treatment Not on file documented as of this encounter Visit Diagnoses Not on filedocumented in this encounter Additional Health Concerns Infection Onset Date Last Indicated Resolved Time COVID-19 Rule-Out 10/26/2023 10/26/2023 10/26/2023 11:45 AM DEPUTY CLERK Influenza 12/28/2024 12/28/2024 01/07/2025 4:23 AM DEPUTY CLERK documented as of this encounter Care Teams Softball Core Molder Relationship Specialty Start Date End Date Glenda Sawant, [facility] [address] [place] [id number] PCP - General Family Medicine 06/07/22 documented as of this encounter
[2025-06-20 16:18] VITALS: BP 89/55; PULSE 87; RESP 16; TEMP 36.9; O2SAT 98; BMI 21.2
[2025-06-20 18:11] LABS: Hematocrit 39.1 % (36-47); Hemoglobin 13.10 g/dL (11.27-16.99); Mean Corpuscular HGB Conc 33.5 g/dL (30-55); Mean Corpuscular Hemoglobin 31.0 pg (27-33); Mean Corpuscular Volume 92.7 fl (85-98); Nucleated Red Blood Cells % 0 %; Platelet Count 195 10^3/cmm (157-399); Red Blood Count 4.22 10^6/uL (3.85-5.65); White Blood Count 9.18 10^3/uL (3.29-11.43)
[2025-06-20 18:18] LABS: Glucose Urine UA Negative (Normal); Nitrate Urine Negative (Negative); Specific Gravity, Urine 1.008 (1.005-1.030)
[2025-06-20 18:23] LABS: Add Urine Microscopic? YES
--- NOTE | 2025-06-20 18:30 | USR_ITS ---
PROCEDURE INFORMATION: Exam: US First Trimester, Transabdominal and US , Transvaginal Exam date and time: 06/20/2025 6:43 PM Age: 34 years old Clinical indication: complicated by abdominal or pelvic pain; Right lower quadrant; First trimester (<14 weeks 0 days); Gestational age or lmp: 6w5d; ; Additional info: Rlq pain, 7w prg LABS AND CLINICAL REPORTS: Gestational age (Established): 6 w 5 d Estimated due date (Established): 02/08/2026 TECHNIQUE: Imaging protocol: Real-time transabdominal obstetrical ultrasound of the maternal pelvis and a first trimester , less than 14 weeks 0 days, with image documentation. Transvaginal imaging was used for better evaluation of the fetus, adnexa, and/or cervix. COMPARISON: No relevant prior studies available. FINDINGS: GESTATION: Gestation: A single intrauterine gestation is seen within a thickened endometrium. A small yolk sac of 3.5 mm is seen. Embryo/ cardiac activity (BPM): FHR 139 bpm. Extra-embryonic membranes/Placenta: Small hypoechoic focus with lenticular shaped on sagittal exam is seen adjacent to the endometrium, measuring 5 x 4 x 2 mm. An additional small hypoechoic focus slightly more lower is seen of 5 x 4 x 5 mm. These could represent small subchorionic hematomas and for follow-up. Amniotic/Chorionic fluid: Amniotic and extra-amniotic fluid are normal for gestational age. BIOMETRY: Gestational age (AUA): 6 weeks 5 days by CRL. Estimated due date (AUA): ARUN by average ultrasound age is 02/08/2026. Velva rump length (CRL): Velva-rump length is 0.84 cm consistent with gestational age 6 weeks 5 days. MATERNAL: Uterus: A rounded mildly heterogeneous focus noted within the myometrium of the uterus measuring 2.6 x 2.1 x 3.1 cm. This is most suggestive of uterine fibroid. Cervix: Cervix measures 3.7 cm and appears closed. Right ovary/adnexa: Right ovary measures 4.2 x 2.5 x 3.8 cm and demonstrates anechoic cyst of 2.2 x 2.2 x 2.6 cm and a smaller mildly complex cyst (small amount of internal predominant linear echogenic component) of 1.6 x 1.3 x 1.6 cm. Larger cyst may represent corpus luteal cyst. Right ovarian flow is seen. PSV 24.1 cm/s with RI 0.41. Left ovary/adnexa: Left ovary measures 3.1 x 1.8 x 1.5 cm and appears unremarkable. Left ovarian flow is seen. PSV 15.8 cm/s. No RI is given. Intraperitoneal space: Trace free fluid in the cul-de-sac. US/US OB <=14 wk fetus w transvag IMPRESSION: 1. Single intrauterine of 6 weeks 5 days by CRL with FHR 139 bpm. ARUN 02/08/2026. 2. Two small hypoechoic foci adjacent to the endometrium of 5 x 4 x 2 mm and 5 x 4 x 5 mm. These likely represent small subchorionic hematomas and for follow-up. 3. 2.6 x 2.1 x 3.1 cm mildly heterogeneous focus within the myometrium of the uterus likely representing uterine fibroid. 4. Right ovarian cysts as noted above, larger likely representing corpus luteal cyst. Bilateral ovarian flow.
[2025-06-20 18:40] LABS: Alanine Aminotransferase 18 U/L (0-33); Albumin Level 4.6 g/dL (3.5-5.2); Alkaline Phosphatase 51 U/L (35-105); Anion Gap 14.3 (5-19); Aspartate Amino Transferase 20 U/L (0-32); Blood Urea Nitrogen 13 mg/dL (6-20); Calcium 9.2 mg/dL (8.5-10.5); Carbon Dioxide 25 mmol/L (22-29); Chloride 104 mmol/L (98-107); Creatinine Clr Calc Pharmacy 113.0764; Globulin 2.4 g/dL (1.3-4.6); Glucose 76 mg/dL (65-115); Lipase 28 U/L (13-60); Osmolality Calculated 287 mOsm/kg (285-295); Potassium 4.3 mmol/L (3.5-5.1); Sodium 139 mmol/L (136-145); Total Protein 7.0 g/dL (6.6-8.7)
[2025-06-20 18:52] VITALS: BP 115/50; PULSE 75; O2SAT 99
--- NOTE | 2025-06-20 19:20 | USR_ITS ---
PROCEDURE INFORMATION: Exam: US Abdomen, Limited; Appendix Exam date and time: 06/20/2025 7:37 PM Age: 34 years old Clinical indication: Abdominal pain; Localized; Right lower quadrant (rlq); ; Additional info: Right lower quadrant pain TECHNIQUE: Imaging protocol: Real time ultrasound of the abdomen with image documentation. Limited exam focused on the appendix. COMPARISON: US transvaginal [id number] 06/20/2025 6:43 PM FINDINGS: Appendix: The appendix is not visualized. Mobile compressible bowel is seen in the right lower quadrant. Iliac artery and vein identified. Fluid suggestive of free fluid is seen within the area of bowel in the right lower quadrant. US/US appendix [id number] IMPRESSION: 1. Appendix is not visualized. 2. Mobile compressible bowel noted right lower quadrant. 3. Fluid suggestive of free fluid is seen within the area bowel in the right lower quadrant. Correlate clinically with the physical exam findings and laboratory findings (WBC count), with further evaluation as clinically indicated.
[2025-06-20 19:25] VITALS: BP 100/69; O2SAT 100
[2025-06-20 19:26] VITALS: PULSE 64
--- NOTE | 2025-06-20 19:31 | W.ED.FEMALGU ---
HPI - Female Genitourinary General: Chief complaint: Abdominal Pain Stated complaint: rt low abd pain (7wks preg) Time Seen by Provider: 06/20/25 17:49 History of Present Illness: 34-year-old female, G3, P2, she believes she is 7 weeks. She presents with right lower quadrant pain. It has been consistent today. On and off the prior 2 days. She has had nausea intermittently, but that is not uncommon for her at this stage in . No vaginal bleeding. No other fluid loss or discharge. No pain with urination. She states that it feels like cramping she gets when she is ovulating at times. Date of Last Menstrual Period: 05/04/25 Related Data Home Medications ?Medication ?Instructions ?Recorded ?Confirmed escitalopram oxalate 20 mg tablet 20 mg PO DAILY 04/01/25 06/19/25 (Lexapro) ferrous sulfate 325 mg (65 mg 325 mg PO DAILY 04/01/25 06/19/25 iron) tablet magnesium 200 mg tablet 200 mg PO DAILY 04/01/25 06/19/25 pyridoxine (vitamin B6) 100 mg 100 mg PO DAILY 04/01/25 06/19/25 tablet , Iron+ folic acid PO 06/19/25 Allergies Allergy/AdvReac Type Severity Reaction Status Date / Time No Known Allergies Allergy Verified 06/19/25 10:15 [facility] PFSH: Medical History (Updated 06/20/25 @ 19:35 by Jose Trammell DO) OCD (obsessive compulsive disorder) Abnormal mammogram of left breast Anxiety No pertinent past medical history neghx: htn, dm, thyroid, dvt/pe PCP: Glenda Sawant Surgical History H/O breast biopsy (~04/2025) ductal hyperplasia; no malignancy H/O sinus surgery (~04/2025) treatment of deviated septum Family History Father Hyperlipidemia Hypertension Grandmother Stroke Diabetes Grandfather Thyroid disease Denies family history of Colon cancer Ovarian cancer Prostate cancer Heart disease Breast cancer Uterine cancer Social History Smoking and tobacco/nicotine status: never used tobacco/nicotine Female Reproductive History: Date of last menstrual period: 05/04/25 Physical Exam Const: COMMON NORMALS: no acute distress GENERAL APPEARANCE: cooperative; not ill appearing and not frail appearing HENMT: COMMON NORMALS: normocephalic, atraumatic and Normal external nose present HEAD & SCALP: normocephalic and atraumatic FACE & SINUS: normal facial exam and face symmetric NOSE: Normal external nose present Eye: COMMON NORMALS: Equal, round and reactive pupils present and EOMs intact bilaterally PUPIL: Yes Equal, round and reactive pupils present Neck/C-Spine: GENERAL: Yes trachea midline Chest: CHEST: Yes Symmetrical chest wall rise Resp: COMMON NORMALS: normal respiratory effort, No retractions, No use of accessory muscles and clear to auscultation bilaterally AUSCULTATION: clear to auscultation bilaterally Cardio: COMMON NORMALS: regular rate and regular rhythm RATE: regular rate RHYTHM: regular rhythm GI: COMMON NORMALS: Normal to inspection, nondistended, normoactive bowel sounds present PALPATION: Yes Tenderness to palpation present (GI) Details: RLQ and No Guarding due to palpation present (GI) Extremity: COMMON NORMALS: no pedal edema Neuro: ALLIE COMA SCALE: document GCS findings [place] coma scale eye opening: Spontaneous Allie coma scale verbal response: Orientated [place] coma scale motor response: Obey commands [place] coma scale total score: 15 SENSORY EXAM: Yes extremities (intact) Psych: COMMON NORMALS: speech normal SPEECH: Yes normal speech Skin: COMMON NORMALS: no rashes or lesions noted GENERAL SKIN EXAM: no rashes or lesions noted Course Vital Signs: Vital signs: Vital Signs Temperature 98.4 F 06/20/25 16:18 Pulse Rate 65 06/20/25 20:16 Respiratory Rate 16 06/20/25 16:18 Blood Pressure 103/71 06/20/25 20:16 Pulse Oximetry 100 06/20/25 20:16 Oxygen Delivery Me thod Room Air 06/20/25 19:41 MDM - Female Medical Decision Making Vitals are normal. She is afebrile. CBC is normal. BMP is normal. CRP is 3. She does not have a urinary tract infection. She is given a bolus of fluid with some improvement. Ultrasound of the pelvis reveals a 6-week 5-day intrauterine with 2 tiny subchorionic bleeding areas. Heartbeat is normal. Blood flow to both ovaries. Minimal amount of fluid in the cul-de-sac. No definite swollen appendix on right lower quadrant ultrasound. She will be discharged. Outpatient follow-up. Pelvic rest. Return for new or worsening symptoms. Lab Data 06/20/25 18:00 06/20/25 18:00 Radiology Impressions Obstetrics Ultrasound 06/20/25 18:30 IMPRESSION: 1. Single intrauterine of 6 weeks 5 days by CRL with FHR 139 bpm. ARUN 02/08/2026. 2. Two small hypoechoic foci adjacent to the endometrium of 5 x 4 x 2 mm and 5 x 4 x 5 mm. These likely represent small subchorionic hematomas and for follow-up. 3. 2.6 x 2.1 x 3.1 cm mildly heterogeneous focus within the myometrium of the uterus likely representing uterine fibroid. 4. Right ovarian cysts as noted above, larger likely representing corpus luteal cyst. Bilateral ovarian flow. Appendix Ultrasound 06/20/25 19:20 IMPRESSION: 1. Appendix is not visualized. 2. Mobile compressible bowel noted right lower quadrant. 3. Fluid suggestive of free fluid is seen within the area bowel in the right lower quadrant. Correlate clinically with the physical exam findings and laboratory findings (WBC count), with further evaluation as clinically indicated. Laboratory Results WBC 9.18 10^3/uL (3.29-11.43) 06/20/25 18:00 RBC 4.22 10^6/uL (3.85-5.65) 06/20/25 18:00 Hgb 13.10 g/dL (11.27-16.99) 06/20/25 18:00 Hct 39.1 % (36-47) 06/20/25 18:00 MCV 92.7 fl (85-98) 06/20/25 18:00 MCH 31.0 pg (27-33) 06/20/25 18:00 MCHC 33.5 g/dL (30-55) 06/20/25 18:00 RDW 12.5 % (12.1-15.1) 06/20/25 18:00 Plt Count 195 10^3/cmm (157-399) 06/20/25 18:00 MPV 8.4 fL (7.4-10.4) 06/20/25 18:00 Neut % (Auto) 65.4 % 06/20/25 18:00 Lymph % (Auto) 25.1 % 06/20/25 18:00 Sunflower % (Auto) 7.3 % 06/20/25 18:00 Eos % (Auto) 1.1 % 06/20/25 18:00 Baso % (Auto) 0.8 % 06/20/25 18:00 Neut # (Auto) 6.01 10^3/uL (1.8-7.7) 06/20/25 18:00 Lymph # (Auto) 2.3 10^3/uL (0.8-4.8) 06/20/25 18:00 Sunflower # (Auto) 0.7 10^3/uL (0.2-0.9) 06/20/25 18:00 Eos # (Auto) 0.1 10^3/uL (0.0-0.8) 06/20/25 18:00 Baso # (Auto) 0.1 10^3/uL (0.0-0.1) 06/20/25 18:00 Nucleated RBC % (auto) 0 % 06/20/25 18:00 Nucleated RBCs # 0.0 /100WBC 06/20/25 18:00 Sodium 139 mmol/L (136-145) 06/20/25 18:00 Potassium 4.3 mmol/L (3.5-5.1) 06/20/25 18:00 Chloride 104 mmol/L (98-107) 06/20/25 18:00 Carbon Dioxide 25 mmol/L (22-29) 06/20/25 18:00 Anion Gap 14.3 (5-19) 06/20/25 18:00 BUN 13 mg/dL (6-20) 06/20/25 18:00 Creatinine 0.6 mg/dL (0.5-0.9) 06/20/25 18:00 GFR Calculation 115.9 mL/min (90-130) 06/20/25 18:00 Glucose 76 mg/dL (65-115) 06/20/25 18:00 Calculated Osmolality 287 mOsm/kg (285-295) 06/20/25 18:00 Calcium 9.2 mg/dL (8.5-10.5) 06/20/25 18:00 Total Bilirubin 0.2 mg/dL (0.15-1.2) 06/20/25 18:00 AST 20 U/L (0-32) 06/20/25 18:00 ALT 18 U/L (0-33) 06/20/25 18:00 Alkaline Phosphatase 51 U/L (35-105) 06/20/25 18:00 C-Reactive Protein 3.0 mg/L (0.0-4.9) 06/20/25 18:00 Total Protein 7.0 g/dL (6.6-8.7) 06/20/25 18:00 Albumin 4.6 g/dL (3.5-5.2) 06/20/25 18:00 Globulin 2.4 g/dL (1.3-4.6) 06/20/25 18:00 Lipase 28 U/L (13-60) 06/20/25 18:00 Ser , Semi-Qnt 21972.00 mIU/mL 06/20/25 18:00 Urine Color Yellow (Yellow) 06/20/25 18:00 Urine Appearance Clear (CLEAR) 06/20/25 18:00 Urine pH 7.5 (5-7) 06/20/25 18:00 Ur Specific [place] 1.008 (1.005-1.030) 06/20/25 18:00 Urine Protein Negative (Negative) 06/20/25 18:00 Urine Glucose (UA) Negative (Normal) 06/20/25 18:00 Urine Ketones Negative (Negative) 06/20/25 18:00 Urine Blood Negative (Negative) 06/20/25 18:00 Urine Nitrate Negative (Negative) 06/20/25 18:00 Urine Bilirubin Negative (Negative) 06/20/25 18:00 Urine Urobilinogen 0.2 mg/dL (Negative) 06/20/25 18:00 Ur Leukocyte Esterase Negative (Negative) 06/20/25 18:00 Urine RBC 0-2 /hpf (0-2) 06/20/25 18:00 Urine WBC 0-5 /hpf (0-5) 06/20/25 18:00 Ur Squamous Epith Cells 0-5 /hpf (0-5) 06/20/25 18:00 Amorphous Sediment Not Reportable 06/20/25 18:00 Urine Bacteria None seen /hpf (NONE) 06/20/25 18:00 Hyaline Casts 0-4 /lpf H 06/20/25 18:00 XR interpretation done by ED provider, pending radiology final review Discharge Plan Discharge Patient Disposition: Home Clinical Impression: Abdominal pain affecting Condition: Stable Prescriptions: No Action escitalopram oxalate [Lexapro] 20 mg tablet 20 mg PO DAILY ferrous sulfate 325 mg (65 mg iron) tablet 325 mg PO DAILY pyridoxine (vitamin B6) 100 mg tablet 100 mg PO DAILY magnesium 200 mg tablet 200 mg PO DAILY , Iron+ folic acid tablet PO Patient Comments: x1 Discharge Orders: Discharge ED (Routine); Ordered 06/20/25 Ordered By: Jose Trammell Referrals: Roderick Casper MD [Primary Care Provider, [employer]] - 1-3 days Patient Instructions: Abdominal Pain in (ED), Opioid Safety, Pain Management, Patient Portal & [facility] Instructions Activity Restrictions/Additional Instructions: Return for fever greater than 100 ?F, vomiting liquids or medications, worsening pain, other concerning symptoms. Stay hydrated. Stay in a cool environment. Pelvic rest (no intercourse, no lifting greater than 10 to 15 pounds, limit squatting climbing and stairs) until cleared by your doctor. Call Sunday for follow-up appointment. Print Language: Somali Coding Level of Care Code ED Software Development Project Manager for [employer]
[2025-06-20 19:41] VITALS: PULSE 64; O2SAT 100
[2025-06-20 20:16] VITALS: BP 103/71; PULSE 65; O2SAT 100
== END 2025-06-20 20:18 | disposition home or self-care (01) ==
PROVIDERS: Family Medicine; Emergency Provider Emergency Medicine; PCP Obstetrics & Gynecology
DX: O26.891 Other specified pregnancy related conditions, first trimester (principal); Z3A.01 Less than 8 weeks gestation of pregnancy; R10.31 Right lower quadrant pain
CPT/HCPCS: 76705; 76801; 76817; 80053; 81001; 83690; 84702; 85025; 86140; 99284; J7030

== ENCOUNTER → 2025-07-08 13:08 | Outpatient (BNVA) | payer OTHER, SELFPAY | PROVIDERS: Referring Provider Obstetrics & Gynecology; Visit Provider Obstetrics & Gynecology | DX: Z36.87 Encounter for antenatal screening for uncertain dates (principal) | CPT/HCPCS: 76801 ==

== ENCOUNTER → 2025-07-22 09:25 | Outpatient (BNVA) | payer OTHER, SELFPAY | PROVIDERS: Visit Provider Obstetrics & Gynecology | DX: Z34.90 Encounter for supervision of normal pregnancy, unspecified, unspecified trimester (principal) | CPT/HCPCS: 80307; 84315; 85025; 86592; 86762; 86803; 86850; 86900; 87086; 87340; 87491; 87591; 87661; 87806 ==

== ENCOUNTER → 2025-08-06 14:04 | Outpatient (BNVA) | payer OTHER, SELFPAY | PROVIDERS: Visit Provider Obstetrics & Gynecology | DX: Z34.90 Encounter for supervision of normal pregnancy, unspecified, unspecified trimester (principal) | CPT/HCPCS: 84315 ==

== ENCOUNTER → 2025-08-26 08:58 | Outpatient (BNVA) | payer OTHER, SELFPAY | PROVIDERS: Visit Provider Obstetrics & Gynecology | DX: Z34.90 Encounter for supervision of normal pregnancy, unspecified, unspecified trimester (principal) | CPT/HCPCS: 84315 ==

== ENCOUNTER → 2025-09-18 13:44 | Outpatient (BNVA) | payer OTHER, SELFPAY | PROVIDERS: Visit Provider Obstetrics & Gynecology | DX: R30.0 Dysuria (principal) | CPT/HCPCS: 81000 ==

== ENCOUNTER → 2025-10-08 09:11 | Outpatient (BNVA) | payer OTHER, SELFPAY | PROVIDERS: Visit Provider Obstetrics & Gynecology | DX: Z34.90 Encounter for supervision of normal pregnancy, unspecified, unspecified trimester (principal) | CPT/HCPCS: 84315 ==

== ENCOUNTER → 2025-10-20 09:20 | Outpatient (BNVA) | payer OTHER, SELFPAY | PROVIDERS: Visit Provider Nurse Practitioner Women's Health | DX: Z3A.24 24 weeks gestation of pregnancy (principal) | CPT/HCPCS: 84315 ==

== ENCOUNTER 2025-10-28 12:10 | Outpatient (CLI) | payer OTHER, SELFPAY ==
[2025-10-28 12:26] VITALS: BP 105/61; PULSE 95
[2025-10-28 12:30] VITALS: BMI 25.8
[2025-10-28 12:43] LABS: Glucose Urine UA Negative (Normal); Nitrate Urine Negative (Negative); Specific Gravity, Urine 1.015 (1.005-1.030)
[2025-10-28 13:02] VITALS: BP 106/56; PULSE 88
[2025-10-28 14:47] VITALS: BP 106/56; PULSE 88; RESP 16; O2SAT 98
== END 2025-10-28 14:47 | disposition home or self-care (01) ==
LOC: OPOB 12:13 → OBGYN 12:14
PROVIDERS: Visit Provider Obstetrics & Gynecology
DX: O26.899 Other specified pregnancy related conditions, unspecified trimester (principal); Z3A.00 Weeks of gestation of pregnancy not specified; R10.A2 Flank pain, left side
CPT/HCPCS: 81001; 99211

== ENCOUNTER 2025-10-29 12:30 | Outpatient (CLI) | payer OTHER, SELFPAY ==
--- NOTE | 2025-10-29 12:45 | US_ITS ---
NOTE: Report was unsigned for reason: Order was edited. Original Signature date and time was: 10/29/25 @1637 WS: [id number] ULTRASOUND BREAST LEFT TECHNIQUE: Ultrasound left breast focused area of concern. CLINICAL INFORMATION: R92.8 - Other abnormal and inconclusive findings on diagn... COMPARISON: Ultrasound 04/29/2025 FINDINGS: The previously described ovoid nodule at the 11 o'clock position 2 cm from the nipple is no longer well visualized. On the prior biopsy images the nodule appears significantly smaller post biopsy and and not definitely visualized today. Biopsy clip not definitely visualized due to dense parenchymal tissue. No evidence of new or increasing nodule or lesion. Patient is currently . Recommend 6-month follow-up LEFT breast ultrasound and LEFT breast diagnostic [facility]ography to confirm no [facility] [id number] IMPRESSION: BI-RADS 2 benign Recommend 6-month follow-up Recommend 6-month follow-up LEFT breast ultrasound and LEFT breast diagnostic m ammography to confirm no change
== END 2025-10-29 12:31 | disposition home or self-care (01) ==
LOC: RAD 12:31
PROVIDERS: PCP Family Medicine; Visit Provider Nurse Practitioner Women's Health
DX: R92.8 Other abnormal and inconclusive findings on diagnostic imaging of breast (principal); Z96.89 Presence of other specified functional implants
CPT/HCPCS: 76641; 76642

== ENCOUNTER 2025-11-12 12:14 | Outpatient (CLI) | payer OTHER, SELFPAY ==
--- NOTE | 2025-11-12 12:18 | XR_ITS ---
WS: [id number] Right foot, 3 views, 11/12/2025 Clinical Data: toe contusion Comparison: None. Findings: There is a line across the distal aspect of the right fifth toe proximal phalanx which could represent an undisplaced fracture. The remainder of the toes shows no abnormalities. The metatarsals and tarsals are normal. The soft tissues are unremarkable. The joint spaces are normal. XR/XR foot RT min 3V* [id number] Impression: Possible undisplaced fracture of right fifth toe proximal phalanx.
== END 2025-11-12 12:15 | disposition home or self-care (01) ==
LOC: RAD 12:15
PROVIDERS: PCP Family Medicine; Visit Provider Registered Nurse Neonatal Intensive Care
DX: S90.121A Contusion of right lesser toe(s) without damage to nail, initial encounter (principal); X58.XXXA Exposure to other specified factors, initial encounter
CPT/HCPCS: 73630

== ENCOUNTER → 2025-11-16 12:00 | Outpatient (BNVA) | payer OTHER, SELFPAY | PROVIDERS: PCP Family Medicine; Visit Provider Obstetrics & Gynecology | DX: Z34.80 Encounter for supervision of other normal pregnancy, unspecified trimester (principal) | CPT/HCPCS: 82950; 84315; 85025 ==